=== PATIENT | female | born 1970 | race Two or more races ===

== ENCOUNTER 2017-03-07 21:24 | Emergency (ER) | payer OTHER ==
[~2017-03-07] VITALS: Ht 170.2 cm; Wt 74.4 kg
[2017-03-07] MEDS ORDERED: MELOXICAM15 MG PO (21:37)
[2017-03-07] MEDS ORDERED: OMEPRAZOLE20 M3 ORAL (21:37)
[2017-03-07 21:41] VITALS: BP 155/81
--- NOTE | 2017-03-07 21:55 | Emergency Room Report ---
History of Present Illness General Chief Complaint: General Complaint Source: Patient Present Illness HPI Is a 46-year-old female with no past medical history. She presents with chief complaint of needle stick. 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 She was stuck in her left ankle area with a needle. The client has checked out several hours ago. There was no blood in the needle. She brought any needles in. No other complaint. Minimal pain to the ankle area. No bleeding. Allergies: Coded Allergies: No Known Allergies (Unverified , 03/07/17) Patient History Past Medical History: none, see triage record, old chart reviewed Past Surgical History: none Pertinent Family History: none Social History: Denies: smoking Last Menstrual Period: now Now: No Immunizations: other Reviewed Nursing Documentation: PMH: Agreed, PSxH: Agreed Nursing Documentation-PMH Past Medical History: No Stated History Review of Systems Eye: Denies: blurred vision, eye pain ENT: Denies: ear pain, nose congestion, throat swelling Respiratory: Denies: cough, shortness of breath Cardiovascular: Denies: chest pain, palpitations Gastrointestinal: Denies: abdominal pain, diarrhea, nausea, vomiting Musculoskeletal: Denies: back pain, joint pain Skin: Denies: rash Neurological: Denies: headache, numbness Endocrine: Denies: increased thirst, increased urine Hematologic/Lymphatic: Denies: easy bruising All Other Systems: negative except mentioned in HPI Physical Exam Vital Signs Date Time Temp Pulse Resp B/P Pulse Ox O2 Delivery O2 Flow Rate FiO2 03/07/17 21:32 97.9 64 16 155/81 100 Room Air vitals normal Sp02 EP Interpretation: reviewed, normal General Appearance: well appearing, no apparent distress, alert Head: normocephalic, atraumatic Eyes: bilateral eye EOMI, bilateral eye PERRL ENT: hearing grossly normal, normal pharynx Neck: full range of motion, supple, no meningismus Respiratory: chest non-tender, lungs clear, normal breath sounds Cardiovascular #1: regular rate, rhythm, no murmur Gastrointestinal: normal bowel sounds, non tender, no mass, no organomegaly, no bruit, non-distended Musculoskeletal: back normal, gait/station normal, normal range of motion, other - Small puncture wound to anterior aspect of the left ankle. No active bleeding. Neurologic: alert, oriented x3 Psychiatric: mood/affect normal Skin: warm/dry Medical Decision Making Diagnostic Impression: Primary Impression: Needle stick injury ER Course Patient presents with needlestick injury. This is from insulin needle. This is low risk for HIV since his been out for several hours. There was no blood in the syringe with a needle itself. I would not start PEP because the risks outweigh the benefits. We'll check for HIV, hepatitis, LFTs. Last Vital Signs Date Time Temp Pulse Resp B/P Pulse Ox O2 Delivery O2 Flow Rate FiO2 03/07/17 21:41 97.9 64 16 155/81 100 Room Air Status: improved Disposition: HOME, SELF-CARE Condition: Stable Additional Instructions: Followup with Worker's Comp. within 2 days. You may call here for labs. Return if symptom worsen. MALVIN SANDHU M.D. March 07, 2017 21:55
[2017-03-07] MEDS ORDERED: TdaP Vaccine 0.5ml Syr IM ONE (22:00)
[2017-03-07 22:10] VITALS: BP 155/81
[2017-03-07 22:22] LABS: EOSINOPHILS % (AUTO) 2.7 % (0.0-3.0); LYMPHOCYTES % (AUTO) 41.7 % (20.0-45.0); MEAN CORPUSCULAR HEMOGLOBIN 23.6 PG (27.0-31.0); MEAN CORPUSCULAR HGB CONC 32.4 G/DL (32.0-36.0); MEAN CORPUSCULAR VOLUME 73 FL (80-99); MEAN PLATELET VOLUME 7.7 FL (6.5-10.1); MONOCYTES % (AUTO) 4.9 % (1.0-10.0); NEUTROPHILS % (AUTO) 48.8 % (45.0-75.0); PLATELET COUNT 329 K/UL (150-450); RED BLOOD COUNT 5.21 M/UL (4.20-5.40); RED CELL DISTRIBUTION WIDTH 16.4 % (11.6-14.8); WHITE BLOOD COUNT 7.9 K/UL (4.8-10.8)
[2017-03-07 22:40] LABS: ALANINE AMINOTRANSFERASE 18 U/L (3-33); AMYLASE 67 U/L (10-110); ANION GAP 14 (5-15); ASPARTATE AMINO TRANSFERASE 17 U/L (5-40); BILIRUBIN,DIRECT 0.1 mg/dL (0.1-0.3); CALCIUM 9.7 mg/dL (8.6-10.2); CARBON DIOXIDE 26 mEQ/L (20-30); CHLORIDE 99 mEQ/L (98-107); CREATININE 0.8 mg/dL (0.5-0.9); GLOMERULAR FILTRATION RATE > 60 mL/min (>60); HEMOLYSIS 2; PHOSPHORUS 3.7 mg/dL (2.5-4.8); POTASSIUM 3.8 mEQ/L (3.4-4.9); SODIUM 139 mEQ/L (135-145); TOTAL PROTEIN 8.1 g/dL (6.6-8.7)
== END 2017-03-07 22:11 | disposition home or self-care (01) ==
LOC: EMR 21:54
DX: S99.912A Unspecified injury of left ankle, initial encounter (principal); W27.3XXA Contact with needle (sewing), initial encounter; Y93.E9 Activity, other interior property and clothing maintenance; Y99.0 Civilian activity done for income or pay; Z23 Encounter for immunization
CPT/HCPCS: 36415; 80069; 80076; 81025; 82150; 85025; 86703; 86803; 87517; 90471; 90715; 96372; 99283